=== PATIENT | female | born 1995 ===

== ENCOUNTER 2017-05-30 06:08 | Emergency (ER) | payer OTHER ==
[2017-05-30 06:19] VITALS: BMI 23.0
--- NOTE | 2017-05-30 06:20 | ED PDOC ---
Arrival/HPI - General Historian: Patient - History of Present Illness Time/Duration: Prior to Arrival Symptom Onset: Sudden Symptom Course: Unchanged Quality: Pressure, Tightness Activities at Onset: Rest Context: Home <Urban Hernadez - Last Filed: 05/30/17 06:51> <Luigi Siu - Last Filed: 05/30/17 07:47> - General Time Seen by Provider: 05/30/17 06:09 - History of Present Illness Narrative History of Present Illness (Text): 05/30/17 06:17 This is a 22 yo female with past medical hx of asthma presenting with chief complaint of chest pain/tightness. Pt says this has been going on for several hours. She uses an albuterol pump at home. She used it with no relief. She says it is similar to an asthma attack. No radiation. Pt describes pain as "tightness." Denies fevers, chills, vomiting, diarrhea, other systemic sx. PMH: asthma PSH: denies Allergies: NKDA FH: asthma in family Home meds: albuterol Social hx: current smoker. denies drinking, drug use. (Urban Hernadez) Past Medical History - Provider Review Nursing Documentation Reviewed: Yes - Travel History Have you recently traveled outside [place] w/in the past 3 mons?: No <Urban Hernadez - Last Filed: 05/30/17 06:51> Family/Social History - Physician Review Nursing Documentation Reviewed: Yes Family/Social History: Other Smoking Status: Current Some Days Smoker Hx Alcohol Use: No Hx Substance Use: No Hx Substance Use Treatment: No <Urban Hernadez - Last Filed: 05/30/17 06:51> Allergies/Home Meds <Urban Hernadez - Last Filed: 05/30/17 06:51> <Luigi Siu - Last Filed: 05/30/17 07:47> Allergies/Adverse Reactions: Allergies No Known Allergies Allergy (Verified 05/30/17 06:21) Home Medications: Home Meds Medication Instructions Recorded Confirmed No Known Home Med 05/30/17 05/30/17 Review of Systems - Review of Systems Constitutional: absent: Fatigue, Weight Change Eyes: absent: Photophobia ENT: absent: Hearing Changes, Tinnitus Respiratory: Wheezing Cardiovascular: Chest Pain. absent: Palpitations Gastrointestinal: absent: Abdominal Pain, Stool Changes Genitourinary Female: absent: Dysuria, Frequency Musculoskeletal: absent: Arthralgias, Back Pain Skin: absent: Rash, Pruritis Neurological: absent: Headache, Dizziness Endocrine: absent: Diaphoresis, Polyuria Hemo/Lymphatic: absent: Adenopathy, Easy Bleeding Psychiatric: absent: Anxiety, Depression <Urban Hernadez - Last Filed: 05/30/17 06:51> Physical Exam Appearance: Positive for: Uncomfortable Mental Status: Positive for: Alert and Oriented X 3 - Systems Exam Head: Present: Atraumatic, Normocephalic Mouth: Present: Moist Mucous Membranes Neck: Present: Normal Range of Motion Respiratory/Chest: No: Respiratory Distress, Accessory Muscle Use Cardiovascular: Present: Regular Rate and Rhythm, Normal S1, S2 Abdomen: No: Distention, Peritoneal Signs Upper Extremity: Present: Normal Inspection. No: Cyanosis, Edema Lower Extremity: Present: Normal Inspection. No: Edema Neurological: Present: CN II-XII Intact, Speech Normal Skin: Present: Warm, Dry Psychiatric: Present: Alert, Oriented x 3, Normal Insight, Normal Concentration <Urban Hernadez - Last Filed: 05/30/17 06:51> Vital Signs Temp Pulse Resp BP Pulse Ox 05/30/17 06:30 97.4 F L 69 18 124/90 98 Medical Decision Making <Urban Hernadez - Last Filed: 05/30/17 06:51> - EKG Interpretation Interpreted by ED Physician: Yes Type: 12 lead EKG <Luigi Siu - Last Filed: 05/30/17 07:47> ED Course and Treatment: -EKG shows sinus rhythm with sinus arrhythmia -rate of 68 05/30/17 06:51 (Urban Hernadez) Impression: Pt seen and evaluated with front office medical assistant. Pt, whose past medical history includes asthma, who presents to the Emergency department complaining of chest tightness for the past several hours, similar to previous asthma attacks. Aware and agree with HPI, clinical findings, plan, and management. Plan: -- EKG -- Chest X-ray -- Duoneb -- Solu-medrol -- Reassess and disposition 05/30/17 07:20 CXR- No acute process 05/30/17 07:47 Case endorsed to /reassess/final disposition (Luigi Siu) - Lab Interpretations Lab Results: 05/30/17 06:30 05/30/17 06:30 Lab Results 05/30/17 06:30: Sodium 139, Potassium 3.9, Chloride 107, Carbon Dioxide 25, Anion Gap 12, BUN 15, Creatinine 0.7, Est GFR ( Amer) > 60, Est GFR (Non- Af Amer) > 60, Random Glucose 105, Calcium 9.0, Total Bilirubin 0.4, AST 28, ALT 26, Alkaline Phosphatase 59, Total Protein 7.3, Albumin 4.1, Globulin 3.2, Albumin/Globulin Ratio 1.3 05/30/17 06:30: WBC 7.5, RBC 4.61, Hgb 13.1, Hct 39.3, MCV 85.2, MCH 28.4, MCHC 33.3, RDW 13.1, Plt Count 270, MPV 10.3, Gran % 57.4, Lymph % (Auto) 31.5, [place] % (Auto) 8.7 H, Eos % (Auto) 2.0, Baso % (Auto) 0.4, Gran # 4.31, Lymph # 2.4, [place] # 0.7 H, Eos # 0.2, Baso # 0.03 - RAD Interpretation Radiology Orders: 05/30/17 06:22 CXR [CHEST PORTABLE] [RAD] Stat - Medication Orders Current Medication Orders: Discontinued Medications Albuterol/Ipratropium (Duoneb 3 Mg/0.5 Mg (3 Ml) Ud) 3 ml IH Q15M YAHAIRA Stop: 05/30/17 07:01 Last Admin: 05/30/17 06:57 Dose: 3 ml Albuterol/Ipratropium (Duoneb 3 Mg/0.5 Mg (3 Ml) Ud) 3 ml IH ONCE STA Stop: 05/30/17 07:11 Methylprednisolone (Solu-Medrol) 125 mg IVP STAT STA Stop: 05/30/17 06:23 Last Admin: 05/30/17 06:40 Dose: 125 mg IVP Administration Document 05/30/17 06:40 IT (Rec: 05/30/17 06:40 IT [id number]) Charges for Administration # of IVP Administrations 1 Ondansetron HCl (Zofran Inj) 4 mg IVP STAT STA Stop: 05/30/17 06:42 Last Admin: 05/30/17 06:47 Dose: 4 mg IVP Administration Document 05/30/17 06:47 IT (Rec: 05/30/17 06:47 IT [id number]) Charges for Administration # of IVP Administrations 1 Disposition/Present on Arrival <Urban Hernadez - Last Filed: 05/30/17 06:51> - Present on Arrival Any Indicators Present on Arrival: No - Disposition Have Diagnosis and Disposition been Completed?: No Disposition Time: 07:40 <Luigi Siu - Last Filed: 05/30/17 07:47> - Disposition Diagnosis: Asthma exacerbation Condition: STABLE Referrals: PCP,NO [Primary Care Provider] - Follow up with primary
[2017-05-30] MEDS: Albuterol-Ipratrop 3 mg / 0.5 (3 ml) UD IH SCH ×3 (06:40→06:57)
[2017-05-30] MEDS ORDERED: Albuterol-Ipratrop 3 mg / 0.5 (3 ml) UD IH STA (07:10)
[2017-05-30 07:16] LABS: BASO # 0.03 K/mm3 (0.0-2.0); BASO % 0.4 % (0.0-3.0); EOS # 0.2 (0.0-0.7); GRAN # 4.31 (1.4-6.5); GRAN % 57.4 % (50.0-68.0); HEMATOCRIT 39.3 % (36.0-48.0); LYMPH # 2.4 (1.2-3.4); LYMPH % 31.5 % (22.0-35.0); MEAN CELL VOLUME 85.2 fl (80.0-105.0); MEAN CORPUSCULAR HEMOGLOBIN 28.4 pg (25.0-35.0); MEAN CORPUSCULAR HGB CONC 33.3 g/dl (31.0-37.0); MEAN PLATELET VOLUME 10.3 fl (7.0-11.0); MONO # 0.7 (0.1-0.6); MONO % 8.7 % (1.0-6.0); RED CELL DISTRIBUTION WIDTH 13.1 % (11.5-14.5); WHITE BLOOD COUNT 7.5 10^3/ul (4.5-11.0)
[2017-05-30 07:26] LABS: ALB/GLOB RATIO 1.3 (1.1-1.8); ALKALINE PHOSPHATASE 59 U/L (38-126); ALT/SGPT 26 U/L (7-56); AST/SGOT 28 U/L (14-36); BILIRUBIN,TOTAL 0.4 mg/dL (0.2-1.3); BLOOD UREA NITROGEN 15 mg/dL (7-21); CARBON DIOXIDE 25 mmol/L (21-33); CHLORIDE 107 mmol/L (98-107); GFR AFRICAN-AMERICAN > 60; GLUCOSE,RANDOM 105 mg/dL (70-110); POTASSIUM 3.9 mmol/L (3.6-5.0); SODIUM 139 mmol/L (132-148); TOTAL PROTEIN 7.3 g/dL (5.8-8.3)
[2017-05-30] MEDS ORDERED: Alum-Mag Hydrox-Simethicone Susp (30 mL) PO STA (07:40)
--- NOTE | 2017-05-30 08:17 | ED PDOC ---
Physical Exam Vital Signs Temp Pulse Resp BP Pulse Ox 05/30/17 06:30 97.4 F L 69 18 124/90 98 Medical Decision Making ED Course and Treatment: 05/30/17 07:12 Patient is signed over to me by Dr. Siu, patient is pending reevaluation and disposition. The patient is complaining of epigastric chest discomfort, but states her breathing has improved. the patient denies any shortness of breath. Maalox was ordered by Dr. Siu 05/30/17 08:42 EKG: Ordered, reviewed, and independently interpreted the EKG. Rate : 68 BPM Rhythm : NSR Interpretation : sinus arrhythmia 05/30/17 08:45 Upon reevaluation, the patient's lungs are clear. The patient appears to have mild midsternal chest wall tenderness. Chest X-ray Chest x-ray interpreted by me appears to be unremarkable. 05/30/17 10:04 On reevaluation, patients symptoms resolved. Toradol assistance with chest wall pain. Patient no longer having sob or wheezing. Lungs clear. No respiratory distress. Patient is able to walk in the ED without sob. She will make sure to follow up with her PMD and advised to return to the ED if symptoms worsen or any other concern. - Lab Interpretations Lab Results: 05/30/17 06:30 05/30/17 06:30 Lab Results 05/30/17 06:30: Sodium 139, Potassium 3.9, Chloride 107, Carbon Dioxide 25, Anion Gap 12, BUN 15, Creatinine 0.7, Est GFR ( Amer) > 60, Est GFR (Non- Af Amer) > 60, Random Glucose 105, Calcium 9.0, Total Bilirubin 0.4, AST 28, ALT 26, Alkaline Phosphatase 59, Total Protein 7.3, Albumin 4.1, Globulin 3.2, Albumin/Globulin Ratio 1.3 05/30/17 06:30: WBC 7.5, RBC 4.61, Hgb 13.1, Hct 39.3, MCV 85.2, MCH 28.4, MCHC 33.3, RDW 13.1, Plt Count 270, MPV 10.3, Gran % 57.4, Lymph % (Auto) 31.5, [place] % (Auto) 8.7 H, Eos % (Auto) 2.0, Baso % (Auto) 0.4, Gran # 4.31, Lymph # 2.4, [place] # 0.7 H, Eos # 0.2, Baso # 0.03 - RAD Interpretation Radiology Orders: 05/30/17 06:22 CXR [CHEST PORTABLE] [RAD] Stat - Medication Orders Current Medication Orders: Discontinued Medications Al Hydrox/Mg Hydrox/Simethicone (Maalox Plus 30 Ml) 30 ml PO STAT STA Stop: 05/30/17 07:41 Last Admin: 05/30/17 07:51 Dose: 30 ml Albuterol/Ipratropium (Duoneb 3 Mg/0.5 Mg (3 Ml) Ud) 3 ml IH Q15M YAHAIRA Stop: 05/30/17 07:01 Last Admin: 05/30/17 06:57 Dose: 3 ml Albuterol/Ipratropium (Duoneb 3 Mg/0.5 Mg (3 Ml) Ud) 3 ml IH ONCE STA Stop: 05/30/17 07:11 Last Admin: 05/30/17 08:19 Dose: 3 ml Ketorolac Tromethamine (Toradol) 30 mg IVP STAT STA Stop: 05/30/17 08:33 Methylprednisolone (Solu-Medrol) 125 mg IVP STAT STA Stop: 05/30/17 06:23 Last Admin: 05/30/17 06:40 Dose: 125 mg IVP Administration Document 05/30/17 06:40 IT (Rec: 05/30/17 06:40 IT [id number]) Charges for Administration # of IVP Administrations 1 Ondansetron HCl (Zofran Inj) 4 mg IVP STAT STA Stop: 05/30/17 06:42 Last Admin: 05/30/17 06:47 Dose: 4 mg IVP Administration Document 05/30/17 06:47 IT (Rec: 05/30/17 06:47 IT [id number]) Charges for Administration # of IVP Administrations 1 - Scribe Statement The provider has reviewed the documentation as recorded by the Antonina Niño Provider Scribe Attestation: All medical record entries made by the Scribe were at my direction and personally dictated by me. I have reviewed the chart and agree that the record accurately reflects my personal performance of the history, physical exam, medical decision making, and the department course for this patient. I have also personally directed, reviewed, and agree with the discharge instructions and disposition. Disposition/Present on Arrival - Present on Arrival Any Indicators Present on Arrival: No History of DVT/PE: No History of Uncontrolled Diabetes: No Urinary Catheter: No History of Decub. Ulcer: No History Surgical Site Infection Following: None - Disposition Have Diagnosis and Disposition been Completed?: Yes Diagnosis: Asthma exacerbation Disposition: HOME/ ROUTINE Disposition Time: 10:04 Patient Plan: Discharge Condition: IMPROVED Discharge Instructions (ExitCare): Asthma (ED) Additional Instructions: Ms Yu thank you for letting us take care of you today. Your provider was Dr. Smith. You were treated for Asthmas Exacerbation. The emergency medical care you received today was directed at your acute symptoms. If you were prescribed any medication, please fill it and take as directed. It may take several days for your symptoms to resolve. Return to the Emergency Department if your symptoms worsen, do not improve, or if you have any other problems. Please contact your doctor or call one of the physicians/clinics you have been referred to that are listed on the Patient Visit Information form that is included in your discharge packet. Bring any paperwork you were given at discharge with you along with any medications you are taking to your follow up visit. Our treatment cannot replace ongoing medical care by a primary care provider (PCP) outside of the emergency department. Thank you for allowing the [facility] team to be part of your care today. If you had an X-Ray or CT scan: A Radiologist will review the ED reading if any change in treatment is needed we will contact you. If you had a blood, urine, or wound culture: It will take several days for the results, if any change in treatment is needed we will contact you. If you had an STI test: It will take 48 hours for the results. Please call after 1 week if you have not heard back. Prescriptions: Albuterol HFA [Ventolin HFA 90 mcg/actuation (8 g)] 2 puff IH Q4 #1 puff predniSONE [predniSONE Tab] 40 mg PO DAILY #8 tab Referrals: PCP,NO [Primary Care Provider] - Follow up with primary Forms: [employer] (Russian), WORK NOTE
--- NOTE | 2017-05-30 08:40 | RAD ---
HISTORY: chest pain COMPARISON: No prior. FINDINGS: LUNGS: No active pulmonary disease. PLEURA: No significant pleural effusion identified, no pneumothorax apparent. CARDIOVASCULAR: Normal. OSSEOUS STRUCTURES: No significant abnormalities. VISUALIZED UPPER ABDOMEN: Normal. OTHER FINDINGS: None. IMPRESSION: No active disease.
[2017-05-30 10:06] VITALS: BP 128/76; PULSE 72; RESP 20; TEMP 98.6; O2SAT 97
--- NOTE | 2017-05-30 18:59 | CARD ---
APPROVED REPORT EKG Measurement Heart [id number] <Conclusion> Normal sinus rhythm with sinus arrhythmia Normal ECG
== END 2017-05-30 10:03 | disposition home or self-care (01) ==
LOC: MERGE 06:08 → ED 06:08
DX: J45.901 Unspecified asthma with (acute) exacerbation (principal); F17.210 Nicotine dependence, cigarettes, uncomplicated
CPT/HCPCS: 71010; 80053; 85025; 93005; 96374; 96375; 99283; J1885; J2405; J2930